=== PATIENT | male | born 1965 | race Caucasian/White ===

== ENCOUNTER 2018-11-11 14:37 | Emergency (ER) | payer BC ==
[2018-11-11] MEDS ORDERED: Pantoprazole 40 MG Vial IVPUSH ONE (14:45)
[2018-11-11] MEDS ORDERED: Sodium Chloride 0.9% 1,000 ML IV ONE (14:45)
[2018-11-11] MEDS ORDERED: Ondansetron 4 MG/2 ML SDV IVPUSH ONE (14:45)
--- NOTE | 2018-11-11 14:46 | EDM.PDOC ---
ED HPI GENERAL MEDICAL PROBLEM - General Chief Complaint: Abdominal Pain Stated Complaint: PAIN IN STOMACH Time Seen by Provider: 11/11/18 14:46 Source of Information: Reports: Patient - History of Present Illness INITIAL COMMENTS - FREE TEXT/NARRATIVE: HISTORY AND PHYSICAL: History of present illness: [Cathy presents mild epigastric abdominal pain mild 3 out of 10 and stomach upset for 1 week with multiple loose stools throughout the week, he attributes this to some fish sticks he ate last Monday, he had multiple loose stools for several days followed by what he describes as crampy abdominal pain no fever nausea vomiting chills sweats no chest pain shortness breath headache dizziness or palpitation no urine symptoms ] Review of systems: As per history of present illness and below otherwise all systems reviewed and negative. Past medical history: As per history of present illness and as reviewed below otherwise noncontributory. Surgical history: As per history of present illness and as reviewed below otherwise noncontributory. Social history: No reported history of drug or alcohol abuse. Family history: As per history of present illness and as reviewed below otherwise noncontributory. Physical exam: HEENT: Atraumatic, normocephalic, pupils reactive, negative for conjunctival pallor or scleral icterus, mucous membranes moist, throat clear, neck supple, nontender, trachea midline. Lungs: Clear to auscultation, breath sounds equal bilaterally, chest nontender. Heart: S1S2, regular, negative for clicks, rubs, or JVD. Abdomen: Soft, nondistended, nontender. Negative for masses or hepatosplenomegaly. Negative for costovertebral tenderness. Pelvis: Stable nontender. Genitourinary: Deferred. Rectal: Deferred. Extremities: Atraumatic, negative for cords or calf pain. Neurovascular unremarkable. Neuro: Awake, alert, oriented. Cranial nerves II through XII unremarkable. Cerebellum unremarkable. Motor and sensory unremarkable throughout. Exam nonfocal. Diagnostics: [TBC CMP UA troponin lipase EKG ] Therapeutics: [ normal saline Zofran Proton X Prilosec iztx-yuf-fnrkikm daily Levaquin 500 by mouth daily #10 no refill Repeat chest x-ray for resolution of pneumonia Local with general surgery for history of gallstones and epigastric discomfort ] Impression Pneumonia Acid reflux-symptoms improved but did not resolve with Mylanta proton X Abdominal pain ] somewhat improved Gallstones present on ultrasound no stone in the common bile duct Mild electrolyte abnormalities Definitive disposition and diagnosis as appropriate pending reevaluation and review of above. abdominal Pain Score (Numeric/FACES): 4 - Related Data Allergies Allergy/AdvReac Type Severity Reaction Status Date / Time No Known Allergies Allergy Verified 11/11/18 14:49 Home Meds: Home Meds Indomethacin 25 mg PO BID PRN 11/11/18 [History] ED ROS GENERAL - Review of Systems Review Of Systems: See Below ED EXAM, GENERAL - Physical Exam Exam: See Below Course - Vital Signs Last Recorded V/S: Last Vital Signs Temp 96.7 F 11/11/18 14:54 Pulse 88 11/11/18 14:54 Resp 18 11/11/18 14:54 BP 145/89 H 11/11/18 14:54 Pulse Ox 98 11/11/18 14:54 - Orders/Labs/Meds Orders: Active Orders 24 hr Category Date Time Status UA RFX ROZINA AND CULT IF INDIC [URIN] Stat Lab 11/11/18 14:45 Ordered Labs: Laboratory Tests 11/11/18 11/11/18 Range/Units 15:03 15:03 WBC 10.56 (4.0-11.0) K/uL RBC 4.77 (4.50-5.90) M/uL Hgb 15.0 (13.0-17.0) g/dL Hct 41.0 (38.0-50.0) % MCV 86.0 (80.0-98.0) fL MCH 31.4 (27.0-32.0) pg MCHC 36.6 (31.0-37.0) g/dL RDW Std Deviation 43.0 (28.0-62.0) fl RDW Coeff of Vincenzo 14 (11.0-15.0) % Plt Count 342 (150-400) K/uL MPV 8.70 (7.40-12.00) fL Neut % (Auto) 70.7 (48.0-80.0) % Lymph % (Auto) 17.9 (16.0-40.0) % [place] % (Auto) 8.6 (0.0-15.0) % Eos % (Auto) 2.3 (0.0-7.0) % Baso % (Auto) 0.5 (0.0-1.5) % Neut # (Auto) 7.5 H (1.4-5.7) K/uL Lymph # (Auto) 1.9 (0.6-2.4) K/uL [place] # (Auto) 0.9 H (0.0-0.8) K/uL Eos # (Auto) 0.2 (0.0-0.7) K/uL Baso # (Auto) 0.1 (0.0-0.1) K/uL Nucleated RBC % 0.0 /100WBC Nucleated RBCs # 0 K/uL Sodium 132 L (136-148) mmol/L Potassium 3.4 L (3.5-5.1) mmol/L Chloride 96 L (98-107) mmol/L Carbon Dioxide 26.9 (21.0-32.0) mmol/L BUN 6 L (7.0-18.0) mg/dL Creatinine 0.9 (0.8-1.3) mg/dL Est Cr Clr Drug Dosing 88.75 mL/min Estimated GFR (MDRD) > 60.0 ml/min Glucose 147 H (74-106) mg/dL Calcium 8.8 (8.5-10.1) mg/dL Total Bilirubin 0.5 (0.2-1.0) mg/dL AST 25 (15-37) IU/L ALT 51 (14-63) IU/L Alkaline Phosphatase 107 (46-116) U/L Troponin I < 0.050 (0.000-0.056) ng/mL Total Protein 7.3 (6.4-8.2) g/dL Albumin 2.8 L (3.4-5.0) g/dL Globulin 4.5 H (2.6-4.0) g/dL Albumin/Globulin Ratio 0.6 L (0.9-1.6) Lipase 153 (73-393) U/L Meds: Medications Discontinued Medications Generic Name Dose Route Start Last Admin Trade Name Freq PRN Reason Stop Dose Admin Al Hydroxide/Mg Hydroxide 15 0 ml 11/11/18 15:52 11/11/18 17:13 ml/ Lidocaine HCl 5 ml PO 11/11/18 15:53 1 each ONETIME ONE Administration Sodium Chloride 1,000 mls @ 999 mls/hr 11/11/18 14:45 11/11/18 15:12 Normal Saline IV 11/11/18 15:45 999 mls/hr STAT ONE Administration Sodium Chloride Confirm 11/11/18 15:06 Normal Saline Administered 11/11/18 15:07 Dose 20 mls @ as directed .ROUTE .STK-MED ONE Ondansetron HCl 8 mg 11/11/18 14:45 11/11/18 15:12 Zofran IVPUSH 11/11/18 14:46 8 mg ONETIME ONE Administration Pantoprazole Sodium 80 mg 11/11/18 14:45 11/11/18 15:12 Protonix Iv IVPUSH 11/11/18 14:46 80 mg .BOLUS ONE Administration Departure - Departure Time of Disposition: 18:46 Disposition: Home, Self-Care 01 Condition: Good Clinical Impression: Pneumonia, Acid reflux, Gall stones, Diarrhea, Abdominal pain - Discharge Information Referrals: PCP,Unknown [Primary Care Provider] - Forms: ED Department Discharge Additional Instructions: Prilosec ghnl-uyh-nmxdala daily Levaquin 500 by mouth daily #10 no refill Repeat chest x-ray for resolution of pneumonia Local with general surgery for history of gallstones and epigastric discomfort Follow-up with general surgery concerning gallstones call phone number below to schedule appropriate follow-up [facility] - General Surgery Professional Building [address] [place] [address], [address] [place] [address] Consider follow-up with primary care for repeat chest x-ray to ensure resolution of pneumonia [facility] [place] [id number] The following information is given to patients seen in the emergency department who are being discharged to home. This information is to outline your options for follow-up care. We provide all patients seen in our emergency department with a follow-up referral. The need for follow-up, as well as the timing and circumstances, are variable depending upon the specifics of your emergency department visit. If you don't have a primary care physician on staff, we will provide you with a referral. We always advise you to contact your personal physician following an emergency department visit to inform them of the circumstance of the visit and for follow-up with them and/or the need for any referrals to a consulting specialist. The emergency department will also refer you to a specialist when appropriate. This referral assures that you have the opportunity for follow-up care with a specialist. All of these measure are taken in an effort to provide you with optimal care, which includes your follow-up. Under all circumstances we always encourage you to contact your private physician who remains a resource for coordinating your care. When calling for follow-up care, please make the office aware that this follow-up is from your recent emergency room visit. If for any reason you are refused follow-up, please contact the [facility] emergency department at and asked to speak to the emergency department charge nurse. - My Orders Last 24 Hours: My Active Orders 11/11/18 14:45 UA RFX ROZINA AND CULT IF INDIC [URIN] Stat - Assessment/Plan Last 24 Hours: My Active Orders 11/11/18 14:45 UA RFX ROZINA AND CULT IF INDIC [URIN] Stat
[2018-11-11] MEDS ORDERED: Sodium Chloride 0.9% 20 ML ONE (15:06)
[2018-11-11 15:43] LABS: CHLORIDE,CL 96 mmol/L (98-107); SODIUM,NA 132 mmol/L (136-148)
[2018-11-11] MEDS ORDERED: Alum Hydrox/Mag Hydrox/Simeth 15 ML, Lidocaine 2% 5 ML PO ONE ×2 (15:52)
--- NOTE | 2018-11-11 16:36 | CR ---
INDICATION: pain HISTORY: Abdominal pain. COMPARISON: None. TECHNIQUE: Abdomen, 2 views. FINDINGS: There is an airspace opacity at the right lung base, which is suspicious for pneumonia. Suggest correlation with formal chest radiographs for further assessment. Bowel gas pattern is nonobstructive. No soft tissue mass by plain film. No suspicious calcification. IMPRESSION: 1. Nonobstructive bowel gas pattern. 2. No evidence for pneumoperitoneum. 3. Airspace opacity at the right lung base is suspicious for pneumonia. See above discussion. Dictated by Morris aBker MD @ 11/11/2018 4:34:32 PM Dictated by: Morris Bakre MD @ 11/11/2018 16:34:40 (Electronically Signed)
--- NOTE | 2018-11-11 18:11 | CR ---
INDICATION: Pain, shortness of breath TECHNIQUE: Chest one view. COMPARISON: None FINDINGS: Cardiovascular and mediastinum: Heart size and vasculature are normal in caliber and appearance. Mediastinum is within normal limits. Lungs and pleural spaces: Right lower lobe airspace opacity worrisome for pneumonia. No sign of pleural effusion. No pneumothorax. Bones and soft tissues: No significant findings. IMPRESSION: Right lower lobe airspace opacity worrisome for pneumonia. This should be followed until full resolution. Dictated by Ovidio Danielson MD @ 11/11/2018 6:09:46 PM Dictated by: Ovidio Danielson MD @ 11/11/2018 18:09:51 (Electronically Signed)
--- NOTE | 2018-11-11 18:21 | US ---
INDICATION: Abdominal pain x2 days TECHNIQUE: Ultrasound abdomen limited. Sonographic images of the right upper quadrant were obtained using mujica-scale and color Doppler images. COMPARISON: None FINDINGS: Liver: The liver is at the upper limits of normal in size at 21.65 centimeters. The hepatic parenchyma is normal in appearance.. No masses. No intrahepatic biliary dilatation. Gallbladder: The gallbladder is contracted and filled with shadowing gallstones.. Normal wall thickness. No pericholecystic fluid. Common bile duct: 5 mm. Pancreas: Normal. The pancreatic tail is not well seen. Right kidney: 12.61 cm. Normal echotexture and cortex. No masses, stones, or hydronephrosis. Vasculature: Proximal abdominal aorta and IVC are normal. IMPRESSION: Contracted gallbladder with multiple gallstones. Normal common bile duct. Dictated by Ovidio Danielson MD @ Nov 11 2018 6:20PM Signed by Dr. Ovidio Danielson @ Nov 11 2018 6:20PM
== END 2018-11-11 19:02 | disposition home or self-care (01) ==
LOC: MW.ED 14:37
DX: J18.9 Pneumonia, unspecified organism (principal); K80.80 Other cholelithiasis without obstruction; K21.9 Gastro-esophageal reflux disease without esophagitis; R10.13 Epigastric pain; E87.8 Other disorders of electrolyte and fluid balance, not elsewhere classified; R19.7 Diarrhea, unspecified
CPT/HCPCS: 36415; 71045; 74019; 76705; 80053; 83690; 84484; 85025; 96361; 96374; 96375; 99284; A9270; C9113; J2405; J7040; 99283

== ENCOUNTER 2018-11-22 10:31 | Day surgery (SDC) | payer SELFPAY ==
[~2018-11-22 10:31] MED LIST: Bupivacaine 25%/EPINEPHrine/PF 30 ML ONE; Lactated Ringers 1,000 ML IV SCH; Octyl 2-Cyanoacrylate 1 Tube ONE; ceFAZolin 2 GM in Premix Bag 1 BAG IV ONE
[2018-11-22] MEDS ORDERED: Albuterol/Ipratropium 3.0-0.5 MG/3 ML Neb Soln NEB ONE (11:17)
--- NOTE | 2018-11-22 11:34 | PCM.PREANE ---
Preanesthetic Assessment - Anesthesia/Transfusion/Family Hx Anesthesia History: No Prior Anesthesia (only local anesthesia for inguinal hernia repair) Transfusion History: No Prior Transfusion(s) - Review of Systems General: No Symptoms Pulmonary: No Symptoms Cardiovascular: No Symptoms Gastrointestinal: No Symptoms Neurological: No Symptoms Other: Reports: None - Physical Assessment NPO Status Date: 11/22/18 NPO Status Time: 00:00 O2 Sat by Pulse Oximetry: 93 Respiratory Rate: 20 Vital Signs: Last Vital Signs Temp 36.4 C 11/22/18 11:25 Pulse 106 H 11/22/18 11:25 Resp 20 11/22/18 11:25 BP 130/85 11/22/18 11:25 Pulse Ox 93 L 11/22/18 11:25 Height: 1.7 m Weight: 104.326 kg ASA Class: 3 Mental Status: Alert & Oriented x3 Airway Class: Mallampati = 2 Dentition: Reports: Missing Tooth/Teeth, Caries (long lower center teeth) Thyro-Mental Finger Breadths: 3 Mouth Opening Finger Breadths: 3 ROM/Head Extension: Full Lungs: Wheezing (duoneb ordered preop, 1226 improved after duoneb treatment. ) Cardiovascular: Regular Rhythm, Tachycardia (patient states that he is in pain from his gout today, pain score "5/10") - Allergies Allergies/Adverse Reactions: Allergies Allergy/AdvReac Type Severity Reaction Status Date / Time No Known Allergies Allergy Verified 11/21/18 17:11 - Acknowledgements Anesthesia Type Planned: General Anesthesia Pt an Appropriate Candidate for the Planned Anesthesia: Yes Alternatives and Risks of Anesthesia Discussed w Pt/Guardian: Yes Pt/Guardian Understands and Agrees with Anesthesia Plan: Yes PreAnesthesia Questionnaire HEENT History: Reports: None Respiratory History: Reports: COPD (chornic tobacco use for 30 years, decreased to a half pack. used inhalers this morning) Gastrointestinal History: Reports: GERD Musculoskeletal History: Reports: Gout (states that he has pain on the inside arch of his left foot, and right toe. pain score 5/10 both foot.) Neurological History: Reports: None Psychiatric History: Reports: None Endocrine/Metabolic History: Reports: Obesity/BMI 30+ Hematologic History: Reports: None - Infectious Disease History Infectious Disease History: Reports: Chicken Pox - Past Surgical History HEENT Surgical History: Reports: Oral Surgery (dental extractions) GI Surgical History: Reports: Hernia, Inguinal (with local anesthesia only) - SUBSTANCE USE Smoking Status *Q: Current Every Day Smoker (30 years, decreased to a half pack. ) Tobacco Use Within Last Twelve Months: Cigarettes Recreational Drug Use History: No - HOME MEDS Home Medications: Home Meds Indomethacin 25 mg PO BID PRN 11/11/18 [History] Albuterol [Ventolin HFA] 1 puff INH DAILY 11/21/18 [History] Budesonide/Formoterol [Symbicort 160-4.5 MCG] 1 puff INH ASDIRECTED PRN [History] Varenicline Tartrate [Chantix] 1 mg PO BID 11/22/18 [History] - CURRENT (IN HOUSE) MEDS Current Meds: Current Medications Lactated Ringer's (Ringers, Lactated) 1,000 mls @ 125 mls/hr IV ASDIRECTED KARLEY Discontinued Medications Albuterol/Ipratropium (Duoneb 3.0-0.5 Mg/3 Ml) 3 ml NEB ONETIME ONE Stop: 11/22/18 11:18 Cefazolin Sodium/Dextrose 2 gm (/ Premix) 50 mls @ 100 mls/hr IV ONETIME ONE Stop: 11/22/18 05:29 Bupivacaine HCl/Epinephrine Bitart (Sensorc Mpf 0.25%-Epi [id number]) Confirm Administered Dose 30 mls @ as directed .ROUTE .STK-MED ONE Stop: 11/22/18 10:18 Octyl Cyanoacrylate (Dermabond Advance) Confirm Administered Dose 1 applic .ROUTE .STK-MED ONE Stop: 11/22/18 10:19
[2018-11-22] MEDS ORDERED: Midazolam 1 MG/ML 2 ML SDV ONE (13:17)
[2018-11-22] MEDS ORDERED: fentaNYL 100 MCG/2 ML SDV ONE ×2 (13:17→14:07)
[2018-11-22] MEDS ORDERED: Propofol 200 MG/20 ML SDV ONE ×3 (13:18→17:26)
[2018-11-22] MEDS ORDERED: HYDROmorphone 2 MG/ML Syringe ONE (14:37)
[2018-11-22] MEDS ORDERED: Sugammadex Sodium 200 MG/2 ML VIAL ONE (15:12)
[2018-11-22] MEDS ORDERED: Bupivacaine 0.5% 30 ML SDV ONE (15:52)
[2018-11-22] MEDS ORDERED: Rocuronium 100 MG/10 ML Syringe ONE (16:14)
--- NOTE | 2018-11-22 17:13 | PCM.SN ---
- Free Text/Narrative Note: Myself and Dr. Travon Man were asked to assist in Mr. Patel's case. Dr. Austin Dorsey was attempting a laparoscopic cholecystectomy for symptomatic cholelithiasis. His gallbladder was encased in omentum with questionable bowel involvement. He converted to open. As a team, we attempted to take down the adhesions with little success. The very top of the gallbladder was visible next to the liver edge. This was opened into the lumen of the gallbladder. The gallbladder was completely full of gallstones. These were removed. We could not identify any proximal structures. The wall of the gallbladder was unable to be identified. Dr. Man attempted to take down the omental adhesions but noticed the duodenum and decided to abort the procedure given concern for possible fistula. A 22 vietnamese mckinley catheter was placed as an open cholecystectomy tube (the balloon was lacerated to avoid insufflation later) and a 19 vietnamese drain was placed next to the area of dissection. After discussion with anesthesia he was left intubated given the length of the case, the complexity and his history of COPD. He will be transferred to [facility] for further management.
--- NOTE | 2018-11-22 17:23 | PCM.OPNOTE ---
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
--- NOTE | 2018-11-22 18:27 | PCM.SN ---
- Free Text/Narrative Note: Was informed during the case that the patient would have to be transferred due to the limited resources. Please refer to Dr. Dorsey's note for further details. Patient was accepted at [facility], and transferred to the facility intubated due to his pulmonary status. The plan is to extubate him once he gets to the ICU. Patient's recovery in the OR started at 1704- 1801. A second IV, 18 gauge was started in his right hand, NG tube was in situ when I arrived. The patient was on the ventilator and sedated with Sevoflurane , 20 mg of rocuronium was given at 1745. The patient's recovery was uneventful. Report was given to the Ambulance transport team: Rosalina Gutiérrez Carolyn, and Jose M.
--- NOTE | 2018-11-22 18:48 | PCM.SN ---
- Free Text/Narrative Note: P seen yesterday in office for acute and chronic cholecystitis; pt remarked it hurted very bad 1 month ago; US > contracted GB; pt was taken to operating room for lap cholecystectomy; see op note for details; lap cholecystectomy revealed a complete mass composed of liver/omentum/gastric/duodenum, gallbladder was not seen; case converted to open, and my colleagues Drs. Ferro and Donovan was also called for assistence; case converted to open, noted the same mass, now with gallbladder open, took out large amt of stones, still cannot delineate the structure of the gallbladder; and noted the involvement of duodenum suggested cholecystodueodenal fistula; we decided to abort the case and transfer to higher level of facility; pt was closed with drains; and transferred to [facility], Dr. Ly; pt was intubated, transferred via air;
--- NOTE | 2018-11-23 09:06 | OR ---
SURGEON: Austin Dorsey MD DATE OF PROCEDURE: 11/22/2018 PREOPERATIVE DIAGNOSIS: Cholelithiasis. POSTOPERATIVE DIAGNOSIS: Choleduodenal fistula. PROCEDURE PERFORMED 1) attempted cholecystectomy, with drains placed 2) incarcerated umb hernia repair, primarily, no mesh used ASSISTANTS: Dr. Man and Dr. Ferro. COMPLICATIONS: None. FINDINGS: Apparently, it looked like the gallbladder is fibrotic, contracted, and forming a direct fistula with duodenum, and surgery was aborted and the patient will be transferred to higher facility in [place]. PROCEDURE IN DETAIL: The patient was taken to operating room and placed in the supine position. Upon induction of general endotracheal anesthesia, the patient's abdomen was prepped and draped in a sterile fashion. Procedure identified, antibiotic given, the patient identified, procedure then started, time-out was being called, and the patient was status post general endotracheal intubation. After assessment of appropriate landmarks, a supraumbilical incision was made, which was dissected around the umbilicus, and the umb hernia open and a 12 mm trocar was placed via it; and pneumoperitoneum was accomplished, and 3 more trocar was inserted. A 5 mm trocar was inserted in the epigastrium and the right upper quadrant under direct video supervision. Upon gaining entrance into the abdominal cavity, it was immediately noticed that the omentum and the liver were glued together, and there is a contracted area. This contracted area is where the stomach, duodenum, omentum, and liver all growing into one piece and the liver showing pretty severe dimple, such as contraction. After attempt to free up the mass laparoscopically for about 5 minutes, it was determined this should be converted to open, and at that time, Dr. Ferro scrubbed in to assist with the open surgery. First of all, the trocars were all removed, and then using a skin scalpel, right upper quadrant subcostal incision was made, and this was carefully taken down to enter the peritoneal cavity and continued to dissect opening using blunt and sharp dissection, cannot really delineate a plane where the gallbladder can be identified. We decided to open up the gallbladder and take out the stone, and still the whole mass where the omentum, the gallbladder, and gastric and duodenum were all fused into one piece, and Dr. Man was also called in for assistance and determined that the patient would benefit to be transferred to higher [facility], where they have more facility and more experience in dealing with this kind of situation to determine that this is probably a gallbladder/ duodenal fistula. We also did a frozen section of the gallbladder to determine it is fibrotic and lots of inflammatory reaction, and invasive malignancy is not seen. At that time, we put in a drain for the peritoneal cavity and then put a 22-Malagasy Rodas into the gallbladder, secured with Vicryl, and secured to the skin with silk, and subcostal incision was closed in double layer with double strand #1 PDS. Skin approximated by use of skin tiffanie. The patient will be remained intubated and transferred to [facility] for further care and talk to Dr. Ly, the surgeon over there, kindly accepted the transfer. The umb hernia was repaired primarily using #1 ethabond, and skin approximated with 4 '0' vicryl and dermabond. Sponge count and instrument count were correct before closing the peritoneum. There is no intraop complication, and dr. Dorsey present throughout the whole procedure. SCOTT / JOSE /[id number] MELL
== END 2018-11-22 18:01 ==
LOC: MW.SDS 10:31 → MW.MS 15:53 → UNDOADMIN 15:53 → MW.SDS 18:01
PROVIDERS: ATTEND Surgery
DX: K82.3 Fistula of gallbladder (principal); K65.4 Sclerosing mesenteritis; K42.0 Umbilical hernia with obstruction, without gangrene; J44.9 Chronic obstructive pulmonary disease, unspecified; F17.210 Nicotine dependence, cigarettes, uncomplicated; M13.872 Other specified arthritis, left ankle and foot; M13.871 Other specified arthritis, right ankle and foot; Z79.899 Other long term (current) drug therapy
CPT/HCPCS: 47600; 88305; 88331; 93005; 94640; A9270; J0131; J1170; J2250; J2704; J3010; J7120; 00790; J3490; J7620-GY